=== PATIENT | male | born 1955 | race Caucasian/White ===

== ENCOUNTER 2018-02-16 13:48 | Inpatient (IN) | payer OTHER ==
[2018-02-16 18:41] VITALS: BMI 29.9
--- NOTE | 2018-02-16 20:17 | HP ---
CIWA Score - CIWA Score Nausea/Vomitin-No Nausea/No Vomiting Muscle Tremors: 4-Moderate,w/Arms Extend Anxiety: 4-Mod. Anxious/Guarded Agitation: 1-Slight > Activity Paroxysmal Sweats: 1-Minimal Palms Moist Orientation: 0-Oriented Tacttile Disturbances: 2-Mild Itch/Numbness/Burn (both hands) Auditory Disturbances: 0-None Visual Disturbances: 1-Very Mild Sensitivity Headache: 0-None Present CIWA-Ar Total Score: 13 Admission ROS BHS - HPI Chief Complaint: alcohol withdrawal symptoms Allergies/Adverse Reactions: Allergies Allergy/AdvReac Type Severity Reaction Status Date / Time No Known Allergies Allergy Verified 02/16/18 20:31 History of Present Illness: Patient is a 62 yo male with history of heroin, alcohol and nicotine dependence presents today seeking detox. Currently attends MMTP at [facility] on methadone 90 mg, last medicated today. PMHX: anxiety, insomnia, depression, BPH , HTN, Anemia. Denies suicidal / homicidal ideation or suicide attempts, reports in the past has had suicidal thoughts. Last detox 15 years ago at [facility]. Exam Limitations: No Limitations - Ebola screening Have you traveled outside of the country in the last 21 days: No (N) Have you had contact with anyone from an Ebola affected area: No Have you been sick,other than usual withdrawal symptoms: No Do you have a fever: No - Review of Systems Constitutional: Chills, Diaphoresis, Unintentional Wgt. Loss (20 lbs) EENT: reports: No Symptoms Reported Respiratory: reports: SOB with Exertion (when ambulating outdoors more than 1 [address]) Cardiac: reports: No Symptoms Reported GI: reports: Constipated, Poor Appetite : reports: No Symptoms Reported Musculoskeletal: reports: Back Pain (right sided back pain, hx of b/t hip replacement) Neuro: reports: See HPI, Tingling (both hands), Tremors (both hands) Endocrine: reports: No Symptoms Reported Hematology: reports: No Symptoms Reported Psychiatric: reports: Orientated x3, Anxious Other Systems: Reviewed and Negative Patient History - Patient Medical History Hx Anemia: Yes Hx Asthma: No Hx Chronic Obstructive Pulmonary Disease (COPD): No Hx Cancer: No Hx Cardiac Disorders: No Hx Congestive Heart Failure: No Hx Hypertension: Yes Hx Pacemaker: No HX Cerebrovascular Accident: No Hx Seizures: No Hx Dementia: No Hx Gastrointestinal Disorders: Yes (hx of Pancreatitis, constipation ) Hx Liver Disease: Yes (Hep C) Hx Genitourinary Disorders: Yes (BPH ) Hx Sexually Transmitted Disorders: No Hx Renal Disease (ESRD): No Hx Thyroid Disease: No Hx Human Immunodeficiency Virus (HIV): No (negative, last test 2 years ago ) Hx Hepatitis C: Yes (treated ) Hx Depression: Yes Hx Suicide Attempt: No Hx Bipolar Disorder: No Hx Schizophrenia: No Other Medical History: Hospitalized Dec 2017 for Acute Respiratory Failure - Patient Surgical History Past Surgical History: Yes Hx Neurologic Surgery: No Hx Cataract Extraction: No Hx Cardiac Surgery: No Hx Lung Surgery: No Hx Breast Surgery: No Hx Breast Biopsy: No Hx Abdominal Surgery: No Hx Appendectomy: Yes (at 10 yo ) Hx Cholecystectomy: No Hx Genitourinary Surgery: No Hx Section: No Hx Orthopedic Surgery: No Hx Hysterectomy: No Anesthesia Reaction: No - PPD History Previous Implant?: Yes Documented Results: Negative w/o proof PPD to be Administered?: No - Reproductive History Patient is a Female of Child Bearing Age (11 -55 yrs old): No - Smoking Cessation Smoking history: Current every day smoker Have you smoked in the past 12 months: Yes Aproximately how many cigarettes per day: 10 Hx Chewing Tobacco Use: No Initiated information on smoking cessation: Yes 'Breaking Loose' booklet given: 02/16/18 - Substance & Tx. History Hx Alcohol Use: Yes Hx Substance Use: Yes Substance Use Type: Alcohol, Heroin Hx Substance Use Treatment: Yes (15 years ago at [facility] ) - Substances Abused Alcohol Route: Oral Frequency: Daily Amount used: 12 x 24 oz Coronas Age of first use: 59 Date of Last Use: 02/16/18 Heroin Route: Inhalation Frequency: Daily Amount used: 1 bag Age of first use: 37 Date of Last Use: 02/16/18 Family Disease History - Family Disease History Family Disease History: Other: Father (, HIV ), Mother (alive, HTN) Admission Physical Exam S - Vital Signs Vital Signs: Vital Signs - 24 hr 02/16/18 18:39 Temperature 97.3 F L Pulse Rate 89 Respiratory 20 Rate Blood Pressure 159/91 - Physical General Appearance: Yes: Appropriately Dressed, Mild Distress, Alcohol on Breath , Obese, Anxious HEENTM: Yes: EOMI, Hearing grossly Normal, Normal ENT Inspection, Normocephalic , Normal Voice, LINUS, Pharynx Normal, Tm's normal Respiratory: Yes: Chest Non-Tender, Lungs Clear, Normal Breath Sounds, No Respiratory Distress, No Accessory Muscle Use Neck: Yes: No masses,lesions,Nodules, Trachea in good position Breast: Yes: Breast Exam Deferred Cardiology: Yes: Regular Rhythm, Regular Rate Abdominal: Yes: Normal Bowel Sounds, Non Tender, Soft, Protuberent Genitourinary: Yes: Within Normal Limits Back: Yes: Normal Inspection Musculoskeletal: Yes: full range of Motion, Gait Steady, Pelvis Stable, Back pain Extremities: Yes: Normal Capillary Refill, Normal Inspection, Normal Range of Motion, Non-Tender Neurological: Yes: sales solutions associate II-XII NML intact, Fully Oriented, Motor Strength 5/5, Depressed Affect, Other (+ tremors upper extremities) Integumentary: Yes: Normal Color, Warm, Moist Lymphatic: Yes: Within Normal Limits - Diagnostic (1) Hypertension Current Visit: Yes Status: Chronic Qualifiers: Hypertension type: essential hypertension Qualified Code(s): I10 - Essential (primary) hypertension (2) BPH (benign prostatic hyperplasia) Current Visit: Yes Status: Chronic Qualifiers: Lower urinary tract symptom presence: unspecified whether lower urinary tract symptoms present Qualified Code(s): N40.0 - Benign prostatic hyperplasia without lower urinary tract symptoms (3) Constipation Current Visit: Yes Status: Acute (4) Alcohol dependence with withdrawal Current Visit: Yes Status: Acute Qualifiers: Complication of substance-induced condition: uncomplicated Qualified Code(s ): F10.230 - Alcohol dependence with withdrawal, uncomplicated (5) Obese Current Visit: Yes Status: Acute Qualifiers: Obesity type: unspecified obesity type Obesity classification: adult class 1 (BMI 30 - 34.9) (6) Nicotine dependence Current Visit: Yes Status: Acute Qualifiers: Nicotine product type: cigarettes (7) Heroin dependence Current Visit: Yes Status: Acute (8) Methadone maintenance therapy patient Current Visit: Yes Status: Acute (9) History of hepatitis C Current Visit: Yes Status: Suspected (10) Tremor due to drug withdrawal Current Visit: Yes Status: Acute Cleared for Admission S - Detox or Rehab [facility] Level of Care: Medically Managed Detox Regimen/Protocol: Librium S Breath Alcohol Content Breath Alcohol Content: 0 Urine Drug Screen - Results Drug Screen Negative: No Urine Drug Screen Results: OPI-Opiates, MTD-Methadone, TCA-Tricyclic Antidepress
[2018-02-16] MEDS ORDERED: MAGNESIUM HYDROX 2400MG/30ML ORAL SUSPENSION 30 ML CUP PO PRN (20:41)
[2018-02-16] MEDS ORDERED: NICOTINE POLACRILEX 2 MG GUM BUC PRN (20:41)
[2018-02-16] MEDS ORDERED: chlordiazePOXIDE HCL 25 MG CAPSULE PO ONE (20:41)
[2018-02-16] MEDS ORDERED: hydrOXYzine PAMOATE 50 MG CAPSULE (FP) PO PRN (20:41)
[2018-02-16] MEDS ORDERED: IBUPROFEN 400 MG TABLET (FP) PO PRN (20:41)
[2018-02-16] MEDS ORDERED: MAGNESIUM CITRATE 300 ML BOTTLE PO PRN (20:41)
[2018-02-16] MEDS ORDERED: MAG HYDROX/AL HYDROX/SIMETH 30 ML UNIT-DOSE CUP PO PRN (20:41)
[2018-02-16] MEDS ORDERED: ACETAMINOPHEN 325 MG TABLET (FP) PO PRN (20:41)
[2018-02-16] MEDS ORDERED: guaiFENesin/D-METHORPHAN HB 10 ML UNIT-DOSE CUPS PO PRN (20:41)
[2018-02-16] MEDS ORDERED: MENTHOL/PHENOL 1 EACH UD MM PRN (20:41)
[2018-02-16] MEDS ORDERED: chlordiazePOXIDE HCL 25 MG CAPSULE PO PRN (20:41)
[2018-02-16] MEDS ORDERED: P-EPHED 60MG/TRIPROLIDI 2.5MG TABLET PO PRN (20:41)
[2018-02-16] MEDS ORDERED: LOPERAMIDE HCL 2 MG CAPSULE PO PRN (20:41)
[2018-02-16] MEDS: THIAMINE HCL 100 MG TABLET (FP) PO SCH (22:33)
[2018-02-16] MEDS: DOCUSATE SODIUM 100 MG CAPSULE (FP) PO SCH (22:34)
[2018-02-16] MEDS: chlordiazePOXIDE HCL 25 MG CAPSULE PO SCH (22:34)
[2018-02-17 02:18] LABS: URINE APPEARANCE CLEAR; URINE BILIRUBIN NEGATIVE (<2.0 mg/dL); URINE BLOOD NEGATIVE (NEGATIVE); URINE COLOR STRAW; URINE GLUCOSE (UA) NEGATIVE (NEGATIVE); URINE KETONE NEGATIVE (NEGATIVE); URINE LEUK ESTERASE NEGATIVE (NEGATIVE); URINE NITRITE NEGATIVE (NEGATIVE); URINE PROTEIN NEGATIVE (NEGATIVE); URINE UROBILINOGEN NEGATIVE mg/dL (0.2-1.0)
[2018-02-17] MEDS: chlordiazePOXIDE HCL 25 MG CAPSULE PO SCH ×4 (05:35→22:32)
[2018-02-17] MEDS ORDERED: METHADONE HCL 10 MG TABLET PO ONE (08:59)
[2018-02-17] MEDS: TAMSULOSIN HCL 0.4 MG CAP.ER.24H (FP) PO SCH (09:06)
--- NOTE | 2018-02-17 09:33 | EKG ---
Test Reason : Blood Pressure : / mmHG Vent. Rate : 080 BPM Atrial Rate : 080 BPM P-R Int : 148 ms QRS Dur : 096 ms QT Int : 416 ms P-R-T Axes : 061 062 056 degrees QTc Int : 479 ms NORMAL SINUS RHYTHM NORMAL ECG NO PREVIOUS ECGS AVAILABLE Confirmed by MARY WINN MD ([id number]) on 02/17/2018 9:33:40 AM Referred By: Confirmed By:MARY WINN MD
[2018-02-17] MEDS ORDERED: METHADONE 80 MG, METHADONE 10 MG PO ONE (09:45)
[2018-02-17 09:58] LABS: CHLORIDE 103 mmol/L (98-107); POTASSIUM 4.5 mmol/L (3.5-5.1); SODIUM 140 mmol/L (136-145)
[2018-02-17] MEDS ORDERED: METHADONE HCL 10 MG TABLET ONE (10:03)
[2018-02-17] MEDS ORDERED: METHADONE HCL 40 MG DISPERSABLE TABLET ONE (10:04)
[2018-02-17 10:06] LABS: ALBUMIN 3.5 g/dl (3.4-5.0); ALK PHOS 72 U/L (45-117); ANION GAP 6 (8-16); BILIRUBIN,TOTAL 0.3 mg/dL (0.2-1.0); BLOOD UREA NITROGEN 24 mg/dL (7-18); CALCIUM 8.5 mg/dL (8.5-10.1); CO2 31 mmol/L (21-32); GLUCOSE,RANDOM 93 mg/dL (74-106); SGOT/AST 23 U/L (15-37); SGPT/ALT 23 U/L (12-78); TOT PROT 7.4 g/dl (6.4-8.2)
[2018-02-17] MEDS: LISINOPRIL 20 MG TABLET (FP) PO SCH (10:06)
[2018-02-17] MEDS: PRENATAL VITAMINS W/ FOLIC ACID TABLET (FP) PO SCH (10:06)
[2018-02-17] MEDS: FINASTERIDE 5 MG TABLET (FP) PO SCH (10:06)
[2018-02-17 10:07] LABS: HEMOGLOBIN 12.2 GM/dL (11.7-16.9); MCH 30.3 pg (25.7-33.7); MCHC 33.8 g/dl (32.0-35.9); MEAN CELL VOLUME 89.6 fl (80-96); MEAN PLT VOLUME 8.6 fl (7.5-11.1); PLATELET COUNT 170 K/MM3 (134-434); RBC 4.02 M/mm3 (4.00-5.60); RDW 14.1 % (11.9-15.9); WHITE BLOOD COUNT 5.4 K/mm3 (4.0-10.0)
[2018-02-17] MEDS: FOLIC ACID 1 MG TABLET (FP) PO SCH (10:10)
[2018-02-17] MEDS: NICOTINE 14 MG/24 HOURS TOPICAL PATCH TD SCH (10:10)
--- NOTE | 2018-02-17 11:21 | PN ---
[facility] CIWA - CIWA Score Nausea/Vomitin-No Nausea/No Vomiting Muscle Tremors: 5 Anxiety: 4-Mod. Anxious/Guarded Agitation: 4-Moderately Restless Paroxysmal Sweats: 1-Minimal Palms Moist Orientation: 0-Oriented Tacttile Disturbances: 0-None Auditory Disturbances: 0-None Visual Disturbances: 0-None Headache: 0-None Present CIWA-Ar Total Score: 14 BHS Progress Note (SOAP) Subjective: ANXIETY,TREMORS,SWEATS,INTERMITTENT SLEEP. Objective: 02/17/18 11:20 Vital Signs Temperature 98.1 F 02/17/18 09:03 Pulse Rate 86 02/17/18 09:03 Respiratory Rate 18 02/17/18 09:03 Blood Pressure 120/78 02/17/18 09:03 O2 Sat by Pulse Oximetry (%) Laboratory Last Values WBC 5.4 K/mm3 (4.0-10.0) 02/17/18 08:00 RBC 4.02 M/mm3 (4.00-5.60) 02/17/18 08:00 Hgb 12.2 GM/dL (11.7-16.9) 02/17/18 08:00 Hct 36.0 % (35.4-49) 02/17/18 08:00 MCV 89.6 fl (80-96) 02/17/18 08:00 MCH 30.3 pg (25.7-33.7) 02/17/18 08:00 MCHC 33.8 g/dl (32.0-35.9) 02/17/18 08:00 RDW 14.1 % (11.9-15.9) 02/17/18 08:00 Plt Count 170 K/MM3 (134-434) 02/17/18 08:00 MPV 8.6 fl (7.5-11.1) 02/17/18 08:00 Sodium 140 mmol/L (136-145) 02/17/18 08:00 Potassium 4.5 mmol/L (3.5-5.1) 02/17/18 08:00 Chloride 103 mmol/L (98-107) 02/17/18 08:00 Carbon Dioxide 31 mmol/L (21-32) 02/17/18 08:00 Anion Gap 6 (8-16) L 02/17/18 08:00 BUN 24 mg/dL (7-18) H 02/17/18 08:00 Creatinine 1.0 mg/dL (0.7-1.3) 02/17/18 08:00 Creat Clearance w eGFR > 60 (>60) 02/17/18 08:00 Random Glucose 93 mg/dL (74-106) 02/17/18 08:00 Calcium 8.5 mg/dL (8.5-10.1) 02/17/18 08:00 Total Bilirubin 0.3 mg/dL (0.2-1.0) 02/17/18 08:00 AST 23 U/L (15-37) 02/17/18 08:00 ALT 23 U/L (12-78) 02/17/18 08:00 Alkaline Phosphatase 72 U/L (45-117) 02/17/18 08:00 Total Protein 7.4 g/dl (6.4-8.2) 02/17/18 08:00 Albumin 3.5 g/dl (3.4-5.0) 02/17/18 08:00 Urine Color Straw 02/17/18 00:05 Urine Appearance Clear 02/17/18 00:05 Urine pH 5.0 (5.0-8.0) 02/17/18 00:05 Ur Specific [place] 1.005 (1.001-1.035) 02/17/18 00:05 Urine Protein Negative (NEGATIVE) 02/17/18 00:05 Urine Glucose (UA) Negative (NEGATIVE) 02/17/18 00:05 Urine Ketones Negative (NEGATIVE) 02/17/18 00:05 Urine Blood Negative (NEGATIVE) 02/17/18 00:05 Urine Nitrite Negative (NEGATIVE) 02/17/18 00:05 Urine Bilirubin Negative (<2.0 mg/dL) 02/17/18 00:05 Urine Urobilinogen Negative mg/dL (0.2-1.0) 02/17/18 00:05 Ur Leukocyte Esterase Negative (NEGATIVE) 02/17/18 00:05 Assessment: 02/17/18 11:21 WITHDRAWAL SX Plan: CONTINUE DETOX INCREASE PO FLUIDS.
--- NOTE | 2018-02-17 17:13 | CONSULT ---
[facility] Psychiatric Consult - Data Date of interview: 02/17/18 Admission source: [facility] Identifying data: First admission [facility] for this 62 y/o male seeking detox treatment on for alcohol and opioid dependence.Patient is single without children,domiciled (lives with sister),unemployed and supported by relatives. Substance Abuse History: Confirmed by pstient in this session.Details in tereso [facility] report : Smoking history: Current every day smoker. Have you smoked in the past 12 months: Yes. Aproximately how many cigarettes per day: 10. Hx Chewing Tobacco Use: No. Initiated information on smoking cessation: Yes. 'Breaking Loose' booklet given: 02/16/18. - Substance & Tx. History. Hx Alcohol Use: Yes. Hx Substance Use: Yes. Substance Use Type: Alcohol, Heroin. Hx Substance Use Treatment: Yes (15 years ago at [facility] ). - Substances Abused. Alcohol. Route: Oral. Frequency: Daily. Amount used: 12 x 24 oz Coronas. Age of first use: 59. Date of Last Use: 02/16/18. Heroin. Route : Inhalation. Frequency: Daily. Amount used: 1 bag. Age of first use: 37. Date of Last Use: 02/16/18 Medical History: Recent history (November 2017) of acute respiratory failure, hepatitis C,benign prostatic hyperplasia,anemia,antecedent of pancreatitis, hypertension and a remote history of appendectomy (childhood). Psychiatric History: Patient denies history of psychiatric hospitalizations or suicide attempts.Mr Esparza is currently followed at [facility] MMTP program (daily methadone dose = 90 mg). Physical/Sexual Abuse/Trauma History: Patient denies. Additional Comment: Urine Drug Screen Results: OPI-Opiates, MTD-Methadone, TCA- Tricyclic Antidepressant.Noted. Mental Status Exam - Mental Status Exam Alert and Oriented to: Time, Place, Person Cognitive Function: Good Patient Appearance: Well Groomed (short stature,overweight) Mood: Sad, Withdrawn, Anxious Affect: Mood Congruent, Constricted (tearful at times) Patient Behavior: Fatigued, Cooperative Speech Pattern: Clear, Appropriate (bilingual) Voice Loudness: Normal Thought Process: Goal Oriented Thought Disorder: Not Present Hallucinations: Denies Suicidal Ideation: Denies Homicidal Ideation: Denies Insight/Judgement: Poor Sleep: Poorly, Difficulty falling asleep Appetite: Good Muscle strength/Tone: Normal Gait/Station: Normal Psychiatric Findings - Problem List ([place] 1, 2,3) (1) Opioid dependence on agonist therapy Current Visit: Yes Status: Acute (2) Alcohol dependence with withdrawal Current Visit: Yes Status: Acute Qualifiers: Complication of substance-induced condition: uncomplicated Qualified Code(s ): F10.230 - Alcohol dependence with withdrawal, uncomplicated (3) Nicotine dependence Current Visit: Yes Status: Acute Qualifiers: Nicotine product type: cigarettes Substance use status: in withdrawal Qualified Code(s): F17.213 - Nicotine dependence, cigarettes, with withdrawal (4) Substance induced mood disorder Current Visit: Yes Status: Acute (5) Insomnia Current Visit: Yes Status: Acute - Initial Treatment Plan Initial Treatment Plan: Psychoeducation.Detoxification.Sleep hygiene discussed.Insomnia is addressed with melatonin 5 mg po hs prn.Side effects/ benefits discussed with the patient.Mr Esparza is in agreement with this careplan.Observation.
[2018-02-17] MEDS: THIAMINE HCL 100 MG TABLET (FP) PO SCH (22:32)
[2018-02-17] MEDS: DOCUSATE SODIUM 100 MG CAPSULE (FP) PO SCH (22:32)
[2018-02-18] MEDS ORDERED: METHADONE HCL 10 MG TABLET ONE (04:34)
[2018-02-18] MEDS ORDERED: METHADONE HCL 40 MG DISPERSABLE TABLET ONE (04:35)
[2018-02-18] MEDS: chlordiazePOXIDE HCL 25 MG CAPSULE PO SCH ×3 (05:32→17:19)
[2018-02-18] MEDS: METHADONE 80 MG, METHADONE 10 MG PO SCH (05:32)
[2018-02-18] MEDS ORDERED: METHADONE HCL 10 MG TABLET PO SCH (06:00)
[2018-02-18] MEDS: LISINOPRIL 20 MG TABLET (FP) PO SCH (10:14)
[2018-02-18] MEDS: NICOTINE 14 MG/24 HOURS TOPICAL PATCH TD SCH (10:14)
[2018-02-18] MEDS: FINASTERIDE 5 MG TABLET (FP) PO SCH (10:14)
[2018-02-18] MEDS: PRENATAL VITAMINS W/ FOLIC ACID TABLET (FP) PO SCH (10:14)
[2018-02-18] MEDS: FOLIC ACID 1 MG TABLET (FP) PO SCH (10:14)
[2018-02-18] MEDS: TAMSULOSIN HCL 0.4 MG CAP.ER.24H (FP) PO SCH (10:14)
--- NOTE | 2018-02-18 17:38 | PN ---
[facility] CIWA - CIWA Score Nausea/Vomitin-No Nausea/No Vomiting Muscle Tremors: 4-Moderate,w/Arms Extend Anxiety: 4-Mod. Anxious/Guarded Agitation: 2 Paroxysmal Sweats: No Perspiration Orientation: 0-Oriented Tacttile Disturbances: 3-Moderate Itch/Numb/Burn Auditory Disturbances: 2-Mild Harshness/Frighten Visual Disturbances: 0-None Headache: 0-None Present CIWA-Ar Total Score: 15 BHS Progress Note (SOAP) Subjective: Tremors, Interrupted Sleep, Anxious. Objective: PATIENT A & O X 3, OBSERVED AMBULATING ON UNIT. NO ACUTE DISTRESS. 02/18/18 17:37 Vital Signs Temperature 96.1 F L 02/18/18 15:28 Pulse Rate 70 02/18/18 15:28 Respiratory Rate 18 02/18/18 15:28 Blood Pressure 123/80 02/18/18 15:28 O2 Sat by Pulse Oximetry (%) Laboratory Tests 02/17/18 02/17/18 02/17/18 00:05 08:00 08:00 WBC 5.4 RBC 4.02 Hgb 12.2 Hct 36.0 MCV 89.6 MCH 30.3 MCHC 33.8 RDW 14.1 Plt Count 170 MPV 8.6 Sodium 140 Potassium 4.5 Chloride 103 Carbon Dioxide 31 Anion Gap 6 L BUN 24 H Creatinine 1.0 Creat Clearance w eGFR > 60 Random Glucose 93 Calcium 8.5 Total Bilirubin 0.3 AST 23 ALT 23 Alkaline Phosphatase 72 Total Protein 7.4 Albumin 3.5 Urine Color Straw Urine Appearance Clear Urine pH 5.0 Ur Specific [place] 1.005 Urine Protein Negative Urine Glucose (UA) Negative Urine Ketones Negative Urine Blood Negative Urine Nitrite Negative Urine Bilirubin Negative Urine Urobilinogen Negative Ur Leukocyte Esterase Negative RPR Titer 02/17/18 08:00 WBC RBC Hgb Hct MCV MCH MCHC RDW Plt Count MPV Sodium Potassium Chloride Carbon Dioxide Anion Gap BUN Creatinine Creat Clearance w eGFR Random Glucose Calcium Total Bilirubin AST ALT Alkaline Phosphatase Total Protein Albumin Urine Color Urine Appearance Urine pH Ur Specific [place] Urine Protein Urine Glucose (UA) Urine Ketones Urine Blood Urine Nitrite Urine Bilirubin Urine Urobilinogen Ur Leukocyte Esterase RPR Titer Nonreactive labs noted. Assessment: 02/18/18 17:37 WITHDRAWAL SYMPTOMS. Plan: CONTINUE DETOX. INCREASE DAILY PO FLUID INTAKE.
[2018-02-18] MEDS: THIAMINE HCL 100 MG TABLET (FP) PO SCH (22:19)
[2018-02-18] MEDS: chlordiazePOXIDE 5 MG CAPSULE PO SCH (22:19)
[2018-02-18] MEDS: DOCUSATE SODIUM 100 MG CAPSULE (FP) PO SCH (22:19)
[2018-02-18] MEDS: MELATONIN 5 MG TABLETS PO PRN (22:20)
[2018-02-19] MEDS ORDERED: METHADONE HCL 40 MG DISPERSABLE TABLET ONE (04:10)
[2018-02-19] MEDS ORDERED: METHADONE HCL 10 MG TABLET ONE (04:10)
[2018-02-19] MEDS: chlordiazePOXIDE 5 MG CAPSULE PO SCH ×3 (05:45→17:29)
[2018-02-19] MEDS: METHADONE 80 MG, METHADONE 10 MG PO SCH (05:45)
[2018-02-19] MEDS: PRENATAL VITAMINS W/ FOLIC ACID TABLET (FP) PO SCH (10:26)
[2018-02-19] MEDS: FOLIC ACID 1 MG TABLET (FP) PO SCH (10:26)
[2018-02-19] MEDS: FINASTERIDE 5 MG TABLET (FP) PO SCH (10:26)
[2018-02-19] MEDS: LISINOPRIL 20 MG TABLET (FP) PO SCH (10:27)
[2018-02-19] MEDS: TAMSULOSIN HCL 0.4 MG CAP.ER.24H (FP) PO SCH (10:28)
[2018-02-19] MEDS: NICOTINE 14 MG/24 HOURS TOPICAL PATCH TD SCH (10:28)
--- NOTE | 2018-02-19 12:11 | PN ---
BHS Progress Note (SOAP) Subjective: body aches sweats interrupted sleep Objective: 02/19/18 12:10 Vital Signs Temperature 95.6 F L 02/19/18 10:01 Pulse Rate 64 02/19/18 10:01 Respiratory Rate 18 02/19/18 10:01 Blood Pressure 139/84 02/19/18 10:01 O2 Sat by Pulse Oximetry (%) [id number] ambulating no acute distress Assessment: 02/19/18 12:10 mild withdrawal sx Plan: continue detox increase fluids d/c in am
[2018-02-19] MEDS: THIAMINE HCL 100 MG TABLET (FP) PO SCH (22:11)
[2018-02-19] MEDS: DOCUSATE SODIUM 100 MG CAPSULE (FP) PO SCH (22:11)
[2018-02-19] MEDS: MELATONIN 5 MG TABLETS PO PRN (22:12)
[2018-02-19] MEDS: chlordiazePOXIDE HCL 10 MG CAPSULE PO SCH (22:12)
[2018-02-19 22:24] VITALS: TEMP 97.1
[2018-02-20] MEDS ORDERED: METHADONE HCL 10 MG TABLET ONE (03:07)
[2018-02-20] MEDS ORDERED: METHADONE HCL 40 MG DISPERSABLE TABLET ONE (03:08)
[2018-02-20] MEDS: METHADONE 80 MG, METHADONE 10 MG PO SCH (05:11)
[2018-02-20] MEDS: chlordiazePOXIDE HCL 10 MG CAPSULE PO SCH (05:11)
[2018-02-20 06:34] VITALS: BP 100/71; PULSE 75
== END 2018-02-20 09:34 | disposition home or self-care (01) | DRG 773 ==
LOC: YASAS 13:48 → Y3N 20:02
PROVIDERS: ADMIT Internal Medicine; ATTEND Internal Medicine
PROC: HZ2ZZZZ Detoxification Services for Substance Abuse Treatment (ICD-10-PCS; principal; 2018-02-16)
DX: F11.20 Opioid dependence, uncomplicated (principal); F10.230 Alcohol dependence with withdrawal, uncomplicated; F17.210 Nicotine dependence, cigarettes, uncomplicated; F19.24 Other psychoactive substance dependence with psychoactive substance-induced mood disorder; F32.9 Major depressive disorder, single episode, unspecified; I10 Essential (primary) hypertension; G47.00 Insomnia, unspecified; G25.1 Drug-induced tremor; N40.0 Benign prostatic hyperplasia without lower urinary tract symptoms; B18.2 Chronic viral hepatitis C; K59.00 Constipation, unspecified; E66.9 Obesity, unspecified; Z68.30 Body mass index [BMI] 30.0-30.9, adult
CPT/HCPCS: 36415; 80053; 81003; 85027; 86593; 93005; 93010